=== PATIENT | female | born 1955 | race Caucasian/White ===

== ENCOUNTER 2017-06-14 14:11 | Inpatient (IN) | payer BC ==
[~2017-06-14] VITALS: Ht 172.7 cm; Wt 50.0 kg
[2017-06-14 14:13] VITALS: BP 140/98; PULSE 76; RESP 16; TEMP 98.5; O2SAT 96
[2017-06-14 14:58] LABS: AUTOMATED NEUTROPHIL # 5.3 TH/MM3 (1.8-7.7); BASOPHIL % 0.6 % (0.0-2.0); EOSINOPHIL % 0.5 % (0.0-4.0); HEMATOCRIT 40.5 % (35.0-46.0); HEMOGLOBIN 13.7 GM/DL (11.6-15.3); LYMPH % 19.2 % (9.0-44.0); LYMPHOCYTE # 1.5 TH/MM3 (1.0-4.8); MEAN CELL VOLUME 94.3 FL (80.0-100.0); MEAN CORPUSCULAR HEMOGLOBIN 31.9 PG (27.0-34.0); MEAN CORPUSCULAR HGB CONC 33.8 % (32.0-36.0); MEAN PLATELET VOLUME 8.2 FL (7.0-11.0); MONO % 9.4 % (0.0-8.0); MONOCYTE # 0.7 TH/MM3 (0-0.9); NEUT % 70.3 % (16.0-70.0); PLATELET COUNT 190 TH/MM3 (150-450); WHITE BLOOD COUNT 7.6 TH/MM3 (4.0-11.0)
[2017-06-14 15:06] LABS: BILIRUBIN, URINE NEG (NEG); BLOOD, URINE MOD (NEG); GLUCOSE,URINE NEG (NEG); HYALINE CAST, URINE 3 /lpf (RARE); KETONE, URINE NEG (NEG); NITRITE,URINE NEG (NEG); PH, URINE 5.5 (5.0-8.5); SQUAMOUS EPITHELIAL CELL URINE 2 /hpf (0-5); TRANSITIONAL EPI CELLS, URINE <1 /hpf; URINE COLOR YELLOW (YELLW/STRAW); URINE LEUKOCYTE ESTERASE NEG (NEG)
[2017-06-14 15:08] LABS: PROTHROMBIN TIME - PATIENT 11.4 SEC (9.8-11.6)
[2017-06-14 15:15] LABS: ALBUMIN 4.8 GM/DL (3.4-5.0); ALT (GPT) 23 U/L (10-53); AST (GOT) 31 U/L (15-37); BICARBONATE 27.5 MEQ/L (21.0-32.0); BLOOD UREA NITROGEN 16 MG/DL (7-18); CALCIUM 8.9 MG/DL (8.5-10.1); CHLORIDE 98 MEQ/L (98-107); CREATININE 0.86 MG/DL (0.50-1.00); GLOMERULAR FILTRATION RATE 67 ML/MIN (>89); GLUCOSE,RANDOM 100 MG/DL (74-106); SODIUM (NA) 136 MEQ/L (136-145)
[2017-06-14 15:26] LABS: ALKALINE PHOSPHATASE 62 U/L (45-117); TOTAL BILIRUBIN ADULT 0.5 MG/DL (0.2-1.0); TOTAL PROTEIN 8.1 GM/DL (6.4-8.2)
[2017-06-14] MEDS ORDERED: SOMA350T PO ×2 (15:54)
[2017-06-14] MEDS ORDERED: FIORINAL2 PO ×2 (15:54)
[2017-06-14] MEDS ORDERED: HYDR-3583 PO ×2 (15:54)
[2017-06-14] MEDS ORDERED: ESTR1 PO ×2 (15:54)
[2017-06-14] MEDS ORDERED: HALOPERIDOL LACTATE 5 MG/ML AMP IV PUSH ONE ×2 (16:45)
[2017-06-14] MEDS ORDERED: LORazepam 2 MG/ML VIAL IV PUSH ONE ×4 (16:45→17:30)
[2017-06-14] MEDS ORDERED: diphenhydrAMINE HCL 50 MG/ML VIAL IV PUSH ONE ×2 (16:45)
[2017-06-14 16:57] VITALS: BP 142/65; PULSE 77; RESP 18; TEMP 98.5; O2SAT 97
--- NOTE | 2017-06-14 17:25 | PD ---
HPI Chief Complaint: Altered Mental Status Time Seen by Provider: 16:15 Travel History International Travel<30 days: No Contact w/Intl Traveler<30days: No Traveled to known affect area: No History of Present Illness HPI This is a 62-year-old female who presents to the emergency department brought in by her who is concerned because she's been behaving bizarrely over the past 2-3 weeks. He says she's been delusional, expressing some auditory and visual hallucinations, talking to herself and waking up in the middle the night trying to clean the house and getting ready to go places. The symptoms have been constant and worsening per her , severe. She's been talking about Caleb Gandhi. She tells me that she is close family with Caleb Gandhi and that they were in the car earlier today. She quickly then told me she can discuss it anymore. She does have a history of chronic back and neck pain. She takes Soma and hydrocodone but has been taking these for years and she smokes marijuana recreationally but has also been doing this for years. She's not taking any new medications. She does endorse that she's been taking a lot of aspirin. PFSH Past Medical History Arthritis: Yes Migraines: Yes Past Surgical History Other Surgery: Yes (BREAST AUGMENTATION) Social History Alcohol Use: No Tobacco Use: No Substance Use: No Allergies-Medications (Allergen,Severity, Reaction): Coded Allergies: No Known Allergies (Unverified , 06/14/17) Reported Meds & Prescriptions Reported Meds & Active Scripts Active Reported Fiorinal (Butalbital/Aspirin/Caffeine) 50-325-40 Mg Cap 1 Cap PO Q4H PRN Do not exceed 6 capsules/day. Estrace (Estradiol) 1 Mg Tab 1 Mg PO DAILY Soma (Carisoprodol) 350 Mg Tab 350 Mg PO QID PRN Hydrocodone-Acetaminophen 10-325 mg Tab 1 Tab PO Q6H PRN Review of Systems Except as stated in HPI: all other systems reviewed are Neg Physical Exam Narrative GENERAL:Well appearing, no acute distress SKIN: Focused skin assessment warm and dry. HEAD: Atraumatic. Normocephalic. EYES: Pupils equal and round. No injection or drainage. ENT: Moist mucous membranes NECK: Trachea midline. CARDIOVASCULAR: Regular rate and rhythm. No murmur appreciated. RESPIRATORY: Clear to auscultation. Breath sounds equal bilaterally. GASTROINTESTINAL: Abdomen soft, non-tender, nondistended. MUSCULOSKELETAL: No obvious deformities. NEUROLOGICAL: Awake and alert. No obvious cranial nerve deficits. Moving all extremities PSYCHIATRIC: Delusional, somewhat tangential, grandiose, poor insight and judgment. Data Data Last Documented VS Vital Signs Date Time Temp Pulse Resp B/P (MAP) Pulse Ox O2 Delivery O2 Flow Rate FiO2 06/14/17 16:57 98.5 77 18 142/65 (90) 97 Room Air Orders Orders Ammonia (06/14/17 14:24) Complete Blood Count With Diff (06/14/17 14:24) Comprehensive Metabolic Panel (06/14/17 14:24) Prothrombin Time / Inr (Pt) (06/14/17 14:24) Act Partial Throm Time (Ptt) (06/14/17 14:24) Thyroid Stimulating Hormone (06/14/17 14:24) Urinalysis - C+S If Indicated (06/14/17 14:24) Drug Screen, Random Urine (06/14/17 14:24) Alcohol (Ethanol) (06/14/17 14:24) Salicylates (Aspirin) (06/14/17 16:28) Psych Screen (06/14/17 16:29) Lorazepam Inj (Ativan Inj) (06/14/17 16:45) Haloperidol Inj (Haldol Inj) (06/14/17 16:45) Diphenhydramine Inj (Benadryl Inj) (06/14/17 16:45) Labs Laboratory Tests Test 06/14/17 14:40 White Blood Count 7.6 TH/MM3 Red Blood Count 4.30 MIL/MM3 Hemoglobin 13.7 GM/DL Hematocrit 40.5 % Mean Corpuscular Volume 94.3 FL Mean Corpuscular Hemoglobin 31.9 PG Mean Corpuscular Hemoglobin Concent 33.8 % Red Cell Distribution Width 14.0 % Platelet Count 190 TH/MM3 Mean Platelet Volume 8.2 FL Neutrophils (%) (Auto) 70.3 % Lymphocytes (%) (Auto) 19.2 % Monocytes (%) (Auto) 9.4 % Eosinophils (%) (Auto) 0.5 % Basophils (%) (Auto) 0.6 % Neutrophils # (Auto) 5.3 TH/MM3 Lymphocytes # (Auto) 1.5 TH/MM3 Monocytes # (Auto) 0.7 TH/MM3 Eosinophils # (Auto) 0.0 TH/MM3 Basophils # (Auto) 0.0 TH/MM3 CBC Comment DIFF FINAL Differential Comment Prothrombin Time 11.4 SEC Prothromb Time International Ratio 1.0 RATIO Activated Partial Thromboplast Time 25.3 SEC Urine Color YELLOW Urine Turbidity HAZY Urine pH 5.5 Urine Specific [place] 1.018 Urine Protein TRACE mg/dL Urine Glucose (UA) NEG mg/dL Urine Ketones NEG mg/dL Urine Occult Blood MOD Urine Nitrite NEG Urine Bilirubin NEG Urine Urobilinogen LESS THAN 2.0 MG/DL Urine Leukocyte Esterase NEG Urine RBC 12 /hpf Urine WBC 1 /hpf Urine Squamous Epithelial Cells 2 /hpf Urine Transitional Epithelial Cells <1 /hpf Urine Hyaline Casts 3 /lpf Microscopic Urinalysis Comment CATH-CULT NOT IND Blood Urea Nitrogen 16 MG/DL Creatinine 0.86 MG/DL Random Glucose 100 MG/DL Total Protein 8.1 GM/DL Albumin 4.8 GM/DL Calcium Level 8.9 MG/DL Alkaline Phosphatase 62 U/L Aspartate Amino Transf (AST/SGOT) 31 U/L Alanine Aminotransferase (ALT/SGPT) 23 U/L Total Bilirubin 0.5 MG/DL Sodium Level 136 MEQ/L Potassium Level 3.3 MEQ/L Chloride Level 98 MEQ/L Carbon Dioxide Level 27.5 MEQ/L Anion Gap 11 MEQ/L Estimat Glomerular Filtration Rate 67 ML/MIN Ammonia 10 MCMOL/L Thyroid Stimulating Hormone 3rd Gen 4.250 uIU/ML Salicylates Level 10.8 MG/DL Urine Opiates Screen POS Urine Barbiturates Screen NEG Urine Amphetamines Screen NEG Urine Benzodiazepines Screen NEG Urine Cocaine Screen NEG Urine Cannabinoids Screen POS Ethyl Alcohol Level LESS THAN 3 MG/DL [facility] Medical Decision Making Medical Screen Exam Complete: Yes Emergency Medical Condition: Yes Interpretation(s) No leukocytosis Electrolytes are reassuring TSH is slightly elevated Urine drug screen is positive for opiates and cannabinoid Differential Diagnosis Substance intoxication, polypharmacy, delusional disorder, encephalitis, bipolar disorder Narrative Course This is a 62-year-old female who presents to the emergency department with delusions. She is actively delusional on my exam, saying that she was in the car with Caleb Gandhi earlier today and saying that she needs to get home because she is having guests. Her says she's been waking up in the middle the night and she's been trying to clean things up that aren't there and she's been acting very bizarrely and talking to herself. I think this patient requires acute psychiatric evaluation. Labs are all reassuring and she has a grossly normal neurologic exam. I don't think the patient demonstrates insight or judgment into her current condition. I'm concerned that she may cause harm to herself if she were discharged. I did place a Ferrell act and the patient was chemically sedated to await psychiatric evaluation. Francheska Smith MD Jun 14, 2017 17:25
[2017-06-14 18:42] VITALS: BP 126/62; PULSE 72; RESP 18; TEMP 98.2; O2SAT 98
[2017-06-14 21:16] VITALS: BP 135/63; PULSE 91; RESP 18; TEMP 96.4; O2SAT 98
--- NOTE | 2017-06-15 06:55 | PD ---
Data Data Last Documented VS Vital Signs Date Time Temp Pulse Resp B/P (MAP) Pulse Ox O2 Delivery O2 Flow Rate FiO2 06/14/17 21:16 96.4 91 18 135/63 (87) 98 Room Air Orders Orders Ammonia (06/14/17 14:24) Complete Blood Count With Diff (06/14/17 14:24) Comprehensive Metabolic Panel (06/14/17 14:24) Prothrombin Time / Inr (Pt) (06/14/17 14:24) Act Partial Throm Time (Ptt) (06/14/17 14:24) Thyroid Stimulating Hormone (06/14/17 14:24) Urinalysis - C+S If Indicated (06/14/17 14:24) Drug Screen, Random Urine (06/14/17 14:24) Alcohol (Ethanol) (06/14/17 14:24) Salicylates (Aspirin) (06/14/17 16:28) Psych Screen (06/14/17 16:29) Lorazepam Inj (Ativan Inj) (06/14/17 16:45) Haloperidol Inj (Haldol Inj) (06/14/17 16:45) Diphenhydramine Inj (Benadryl Inj) (06/14/17 16:45) Lorazepam Inj (Ativan Inj) (06/14/17 17:30) Diet Regular Basic (06/15/17 Breakfast) Labs Laboratory Tests Test 06/14/17 14:40 White Blood Count 7.6 TH/MM3 Red Blood Count 4.30 MIL/MM3 Hemoglobin 13.7 GM/DL Hematocrit 40.5 % Mean Corpuscular Volume 94.3 FL Mean Corpuscular Hemoglobin 31.9 PG Mean Corpuscular Hemoglobin Concent 33.8 % Red Cell Distribution Width 14.0 % Platelet Count 190 TH/MM3 Mean Platelet Volume 8.2 FL Neutrophils (%) (Auto) 70.3 % Lymphocytes (%) (Auto) 19.2 % Monocytes (%) (Auto) 9.4 % Eosinophils (%) (Auto) 0.5 % Basophils (%) (Auto) 0.6 % Neutrophils # (Auto) 5.3 TH/MM3 Lymphocytes # (Auto) 1.5 TH/MM3 Monocytes # (Auto) 0.7 TH/MM3 Eosinophils # (Auto) 0.0 TH/MM3 Basophils # (Auto) 0.0 TH/MM3 CBC Comment DIFF FINAL Differential Comment Prothrombin Time 11.4 SEC Prothromb Time International Ratio 1.0 RATIO Activated Partial Thromboplast Time 25.3 SEC Urine Color YELLOW Urine Turbidity HAZY Urine pH 5.5 Urine Specific [place] 1.018 Urine Protein TRACE mg/dL Urine Glucose (UA) NEG mg/dL Urine Ketones NEG mg/dL Urine Occult Blood MOD Urine Nitrite NEG Urine Bilirubin NEG Urine Urobilinogen LESS THAN 2.0 MG/DL Urine Leukocyte Esterase NEG Urine RBC 12 /hpf Urine WBC 1 /hpf Urine Squamous Epithelial Cells 2 /hpf Urine Transitional Epithelial Cells <1 /hpf Urine Hyaline Casts 3 /lpf Microscopic Urinalysis Comment CATH-CULT NOT IND Blood Urea Nitrogen 16 MG/DL Creatinine 0.86 MG/DL Random Glucose 100 MG/DL Total Protein 8.1 GM/DL Albumin 4.8 GM/DL Calcium Level 8.9 MG/DL Alkaline Phosphatase 62 U/L Aspartate Amino Transf (AST/SGOT) 31 U/L Alanine Aminotransferase (ALT/SGPT) 23 U/L Total Bilirubin 0.5 MG/DL Sodium Level 136 MEQ/L Potassium Level 3.3 MEQ/L Chloride Level 98 MEQ/L Carbon Dioxide Level 27.5 MEQ/L Anion Gap 11 MEQ/L Estimat Glomerular Filtration Rate 67 ML/MIN Ammonia 10 MCMOL/L Thyroid Stimulating Hormone 3rd Gen 4.250 uIU/ML Salicylates Level 10.8 MG/DL Urine Opiates Screen POS Urine Barbiturates Screen NEG Urine Amphetamines Screen NEG Urine Benzodiazepines Screen NEG Urine Cocaine Screen NEG Urine Cannabinoids Screen POS Ethyl Alcohol Level LESS THAN 3 MG/DL MDM Supervised Visit with CHIVO: No Narrative Course I was asked by the bioinformatics support specialist to order patient Fiorinal at the request of the psychiatrist. RN states that psychiatrist feels that the patient's symptoms are from Fiorinal withdrawal and not psychiatric illness after discussing the patient with the psychiatrist over the phone. I reviewed patient 's charts, [employer], and then discussed this with Dr. Taylor, who recommends having the RN verified with patient's exactly how often she was taken Fiorinal and when she actually took it last. Whether she was taking it 3 times a day regularly or just a when necessary medication. Per [employer] patient last picked up a prescription of Fiorinal March 23 of this year. This is was related to bioinformatics support specialist Ashleigh. Vivek Barrera Jun 15, 2017 06:55
--- NOTE | 2017-06-15 06:55 | PD ---
Data Data Last Documented VS Vital Signs Date Time Temp Pulse Resp B/P (MAP) Pulse Ox O2 Delivery O2 Flow Rate FiO2 06/14/17 21:16 96.4 91 18 135/63 (87) 98 Room Air Orders Orders Ammonia (06/14/17 14:24) Complete Blood Count With Diff (06/14/17 14:24) Comprehensive Metabolic Panel (06/14/17 14:24) Prothrombin Time / Inr (Pt) (06/14/17 14:24) Act Partial Throm Time (Ptt) (06/14/17 14:24) Thyroid Stimulating Hormone (06/14/17 14:24) Urinalysis - C+S If Indicated (06/14/17 14:24) Drug Screen, Random Urine (06/14/17 14:24) Alcohol (Ethanol) (06/14/17 14:24) Salicylates (Aspirin) (06/14/17 16:28) Psych Screen (06/14/17 16:29) Lorazepam Inj (Ativan Inj) (06/14/17 16:45) Haloperidol Inj (Haldol Inj) (06/14/17 16:45) Diphenhydramine Inj (Benadryl Inj) (06/14/17 16:45) Lorazepam Inj (Ativan Inj) (06/14/17 17:30) Diet Regular Basic (06/15/17 Breakfast) Labs Laboratory Tests Test 06/14/17 14:40 White Blood Count 7.6 TH/MM3 Red Blood Count 4.30 MIL/MM3 Hemoglobin 13.7 GM/DL Hematocrit 40.5 % Mean Corpuscular Volume 94.3 FL Mean Corpuscular Hemoglobin 31.9 PG Mean Corpuscular Hemoglobin Concent 33.8 % Red Cell Distribution Width 14.0 % Platelet Count 190 TH/MM3 Mean Platelet Volume 8.2 FL Neutrophils (%) (Auto) 70.3 % Lymphocytes (%) (Auto) 19.2 % Monocytes (%) (Auto) 9.4 % Eosinophils (%) (Auto) 0.5 % Basophils (%) (Auto) 0.6 % Neutrophils # (Auto) 5.3 TH/MM3 Lymphocytes # (Auto) 1.5 TH/MM3 Monocytes # (Auto) 0.7 TH/MM3 Eosinophils # (Auto) 0.0 TH/MM3 Basophils # (Auto) 0.0 TH/MM3 CBC Comment DIFF FINAL Differential Comment Prothrombin Time 11.4 SEC Prothromb Time International Ratio 1.0 RATIO Activated Partial Thromboplast Time 25.3 SEC Urine Color YELLOW Urine Turbidity HAZY Urine pH 5.5 Urine Specific [place] 1.018 Urine Protein TRACE mg/dL Urine Glucose (UA) NEG mg/dL Urine Ketones NEG mg/dL Urine Occult Blood MOD Urine Nitrite NEG Urine Bilirubin NEG Urine Urobilinogen LESS THAN 2.0 MG/DL Urine Leukocyte Esterase NEG Urine RBC 12 /hpf Urine WBC 1 /hpf Urine Squamous Epithelial Cells 2 /hpf Urine Transitional Epithelial Cells <1 /hpf Urine Hyaline Casts 3 /lpf Microscopic Urinalysis Comment CATH-CULT NOT IND Blood Urea Nitrogen 16 MG/DL Creatinine 0.86 MG/DL Random Glucose 100 MG/DL Total Protein 8.1 GM/DL Albumin 4.8 GM/DL Calcium Level 8.9 MG/DL Alkaline Phosphatase 62 U/L Aspartate Amino Transf (AST/SGOT) 31 U/L Alanine Aminotransferase (ALT/SGPT) 23 U/L Total Bilirubin 0.5 MG/DL Sodium Level 136 MEQ/L Potassium Level 3.3 MEQ/L Chloride Level 98 MEQ/L Carbon Dioxide Level 27.5 MEQ/L Anion Gap 11 MEQ/L Estimat Glomerular Filtration Rate 67 ML/MIN Ammonia 10 MCMOL/L Thyroid Stimulating Hormone 3rd Gen 4.250 uIU/ML Salicylates Level 10.8 MG/DL Urine Opiates Screen POS Urine Barbiturates Screen NEG Urine Amphetamines Screen NEG Urine Benzodiazepines Screen NEG Urine Cocaine Screen NEG Urine Cannabinoids Screen POS Ethyl Alcohol Level LESS THAN 3 MG/DL MDM Supervised Visit with CHIVO: No Narrative Course I was asked by the athlete marketing agent to order patient Fiorinal at the request of the psychiatrist. RN states that psychiatrist feels that the patient's symptoms are from Fiorinal withdrawal and not psychiatric illness after discussing the patient with the psychiatrist over the phone. I reviewed patient 's charts, [employer], and then discussed this with Dr. Taylor, who recommends having the RN verified with patient's exactly how often she was taken Fiorinal and when she actually took it last. Whether she was taking it 3 times a day regularly or just a when necessary medication. Per [employer] patient last picked up a prescription of Fiorinal March 23 of this year. This is was related to athlete marketing agent Ashleigh. Vivek Barrera Jun 15, 2017 06:55
--- NOTE | 2017-06-15 06:55 | PD ---
Data Data Last Documented VS Vital Signs Date Time Temp Pulse Resp B/P (MAP) Pulse Ox O2 Delivery O2 Flow Rate FiO2 06/14/17 21:16 96.4 91 18 135/63 (87) 98 Room Air Orders Orders Ammonia (06/14/17 14:24) Complete Blood Count With Diff (06/14/17 14:24) Comprehensive Metabolic Panel (06/14/17 14:24) Prothrombin Time / Inr (Pt) (06/14/17 14:24) Act Partial Throm Time (Ptt) (06/14/17 14:24) Thyroid Stimulating Hormone (06/14/17 14:24) Urinalysis - C+S If Indicated (06/14/17 14:24) Drug Screen, Random Urine (06/14/17 14:24) Alcohol (Ethanol) (06/14/17 14:24) Salicylates (Aspirin) (06/14/17 16:28) Psych Screen (06/14/17 16:29) Lorazepam Inj (Ativan Inj) (06/14/17 16:45) Haloperidol Inj (Haldol Inj) (06/14/17 16:45) Diphenhydramine Inj (Benadryl Inj) (06/14/17 16:45) Lorazepam Inj (Ativan Inj) (06/14/17 17:30) Diet Regular Basic (06/15/17 Breakfast) Labs Laboratory Tests Test 06/14/17 14:40 White Blood Count 7.6 TH/MM3 Red Blood Count 4.30 MIL/MM3 Hemoglobin 13.7 GM/DL Hematocrit 40.5 % Mean Corpuscular Volume 94.3 FL Mean Corpuscular Hemoglobin 31.9 PG Mean Corpuscular Hemoglobin Concent 33.8 % Red Cell Distribution Width 14.0 % Platelet Count 190 TH/MM3 Mean Platelet Volume 8.2 FL Neutrophils (%) (Auto) 70.3 % Lymphocytes (%) (Auto) 19.2 % Monocytes (%) (Auto) 9.4 % Eosinophils (%) (Auto) 0.5 % Basophils (%) (Auto) 0.6 % Neutrophils # (Auto) 5.3 TH/MM3 Lymphocytes # (Auto) 1.5 TH/MM3 Monocytes # (Auto) 0.7 TH/MM3 Eosinophils # (Auto) 0.0 TH/MM3 Basophils # (Auto) 0.0 TH/MM3 CBC Comment DIFF FINAL Differential Comment Prothrombin Time 11.4 SEC Prothromb Time International Ratio 1.0 RATIO Activated Partial Thromboplast Time 25.3 SEC Urine Color YELLOW Urine Turbidity HAZY Urine pH 5.5 Urine Specific [place] 1.018 Urine Protein TRACE mg/dL Urine Glucose (UA) NEG mg/dL Urine Ketones NEG mg/dL Urine Occult Blood MOD Urine Nitrite NEG Urine Bilirubin NEG Urine Urobilinogen LESS THAN 2.0 MG/DL Urine Leukocyte Esterase NEG Urine RBC 12 /hpf Urine WBC 1 /hpf Urine Squamous Epithelial Cells 2 /hpf Urine Transitional Epithelial Cells <1 /hpf Urine Hyaline Casts 3 /lpf Microscopic Urinalysis Comment CATH-CULT NOT IND Blood Urea Nitrogen 16 MG/DL Creatinine 0.86 MG/DL Random Glucose 100 MG/DL Total Protein 8.1 GM/DL Albumin 4.8 GM/DL Calcium Level 8.9 MG/DL Alkaline Phosphatase 62 U/L Aspartate Amino Transf (AST/SGOT) 31 U/L Alanine Aminotransferase (ALT/SGPT) 23 U/L Total Bilirubin 0.5 MG/DL Sodium Level 136 MEQ/L Potassium Level 3.3 MEQ/L Chloride Level 98 MEQ/L Carbon Dioxide Level 27.5 MEQ/L Anion Gap 11 MEQ/L Estimat Glomerular Filtration Rate 67 ML/MIN Ammonia 10 MCMOL/L Thyroid Stimulating Hormone 3rd Gen 4.250 uIU/ML Salicylates Level 10.8 MG/DL Urine Opiates Screen POS Urine Barbiturates Screen NEG Urine Amphetamines Screen NEG Urine Benzodiazepines Screen NEG Urine Cocaine Screen NEG Urine Cannabinoids Screen POS Ethyl Alcohol Level LESS THAN 3 MG/DL MDM Supervised Visit with CHIVO: No Narrative Course I was asked by the channel sales manager to order patient Fiorinal at the request of the psychiatrist. RN states that psychiatrist feels that the patient's symptoms are from Fiorinal withdrawal and not psychiatric illness after discussing the patient with the psychiatrist over the phone. I reviewed patient 's charts, [employer], and then discussed this with Dr. Taylor, who recommends having the RN verified with patient's exactly how often she was taken Fiorinal and when she actually took it last. Whether she was taking it 3 times a day regularly or just a when necessary medication. Per [employer] patient last picked up a prescription of Fiorinal March 23 of this year. This is was related to channel sales manager Ashleigh. Vivek Barrera Jun 15, 2017 06:55
[2017-06-15] MEDS ORDERED: LORazepam 1 MG TAB PO PRN ×2 (10:30)
[2017-06-15] MEDS ORDERED: MAGNESIUM HYDROXIDE SUSP 30 ML CUP PO PRN ×2 (10:30)
[2017-06-15] MEDS ORDERED: ACETAMINOPHEN 325 MG TAB PO PRN ×2 (10:30)
[2017-06-15] MEDS ORDERED: ALUMINUM/MAGNESIUM/SIMETH 30 ML CUP PO PRN ×2 (10:30)
[2017-06-15] MEDS ORDERED: LORazepam 2 MG TAB PO PRN ×2 (10:30)
[2017-06-15] MEDS ORDERED: FLUMAZENIL 0.5 MG/5 ML VIAL IV PUSH PRN ×2 (10:30)
[2017-06-15] MEDS ORDERED: LORazepam 2 MG/ML VIAL IV PUSH PRN ×8 (10:30)
--- NOTE | 2017-06-15 10:54 | HHI.HP ---
Provisional Diagnosis Admission Date Jun 15, 2017 at 10:29 [place]. Brief psychotic disorder Certification of Person's Competence To Provide Express and Informed Consent I have personally examined Theresa Sandoval , a person being served at [facility] on, Jun 15, 2017 10:42. Express and informed consent means consent voluntarily given in writing, by a competent person, after sufficient explanation and disclosure of the subject matter involved to enable the person to make a knowing and willful decision without any element of force, fraud, deceit, duress, or other form of constraint or coercion. This person is 18 years of age or older, is not now known to be incompetent to consent to treatment with a guardian advocate, and does not have a health care surrogate or proxy currently making medical treatment decisions. I have found this person to be one of the following: [X] Competent to provide express and informed consent, as defined above, for voluntary admission to this facility and is competent to provide express and informed consent for treatment. He/she has the consistent capacity to make well reasoned, willful, and knowing decisions concerning his or her medical or mental health treatment. The person fully and consistently understands the purpose of the admission for examination/placement and is fully capable of personally exercising all rights assured [place] [] Incompetent to provide express and informed consent to voluntary admission, and this is incompetent to provide express and informed consent to treatment. The person must be transferred to involuntary status and a petition for a guardian advocate filed with the Circuit Court. [] Refusing to provide express and informed consent to voluntary admission but is competent to provide express and informed consent for treatment. The person must be discharged or transferred to involuntary status. Form shall be completed within 24 hours of a person's arrival at the receiving facility and filed in the clinical record of each person: 1. Admitted on a voluntary basis 2. Permitted to provide express and informed consent to his/her own treatment 3. Allowed to transfer from involuntary to voluntary status 4. Prior to permitting a person to consent to his or her own treatment after having been previously found incompetent to consent to treatment. History of Present Illness Capacity: Has Capacity HPI 62-year-old female Ferrell acted for delusional and bizarre behavior. Patient was apparently talking about driving in a motor vehicle yesterday with Caleb De Souza. She has had several weeks of increasing delusional thinking and visual as well as auditory hallucinations. She admits to these experiences but is unable to provide much detail. She also talks about paresthesias in her hands and other bizarre physical symptoms. Her of many years became concerned and brought her to the hospital for further evaluation and treatment. The patient has been treated with opiates, Fiorinal, Soma for many years. Earlier, this year, her physician in [place] had a stroke and stop prescribing these medicines. She is still positive for barbiturates and opiates as well as cannabinoids in her toxicology screen. She admits to smoking marijuana frequently as well. There is some concern the patient is withdrawing from barbiturates. The patient wants to leave despite acknowledging that she is having hallucinations and delusions but her does not feel safe taking her home and prefers she be admitted for further evaluation and treatment. Review of Systems ROS Limitations: Clinical Condition Except as stated in HPI: all other systems reviewed are Neg Past Psych History Psychological trauma history Denied for psychological trauma. Violence risk - others (6 mos) Moderate to high due to psychosis and impulsivity. Violence risk - self (6 mos) High due to psychosis and impulsivity. Substance Abuse History Drugs/Alcohol past 12 months This physician notes the patient has a multitude of prescribed medicines that are written multiple times per day at relatively high doses. This physician is concerned that she is abusing these medicines and or mixing them inappropriately with marijuana. Past Family Social History Coded Allergies: No Known Allergies (Unverified , 06/14/17) Reported Medications Eqhyzifzlk-Dbxwjgc-Oofybslw (Fiorinal) 50-325-40 Mg Cap, 1 CAP PO Q4H Y for HEADACHE, CAP 0 Refills Do not exceed 6 capsules/day. 06/14/17 Estradiol (Estrace) 1 Mg Tab, 1 MG PO DAILY for Estrogen Supplements, #30 TAB 0 Refills 06/14/17 Carisoprodol (Soma) 350 Mg Tab, 350 MG PO QID Y for PAIN, TAB 0 Refills 06/14/17 Hydrocodone-Acetaminophen (Hydrocodone-Acetaminophen) 10-325 mg Tab, 1 TAB PO Q6H Y for PAIN, TAB 0 Refills 06/14/17 Current Medications Medications (Trade) Dose Ordered Sig/[place]son Route Start Time Stop Time Status Last Admin (Tylenol) 650 mg Q4H PRN PO 11/2/17 10:30 (Milk Of Magnesia Liq) 30 ml DAILY PRN PO 06/15/17 10:30 (Mag-Al Plus Susp Liq) 30 ml Q6H PRN PO 06/15/17 10:30 (Desyrel) 50 mg HS PRN PO 06/15/17 10:30 (Atarax) 50 mg Q6H PRN PO 06/15/17 10:30 (Romazicon Inj) 0.2 mg Q1M PRN IV PUSH 06/15/17 10:30 (Ativan) 1 mg Q4H PRN PO 06/15/17 10:30 UNV (Ativan Inj) 1 mg Q4H PRN IV PUSH 06/15/17 10:30 UNV (Ativan) 2 mg Q2H PRN PO 06/15/17 10:30 UNV (Ativan Inj) 2 mg Q2H PRN IV PUSH 06/15/17 10:30 UNV (Ativan Inj) 2 mg Q1H PRN IV PUSH 06/15/17 10:30 UNV (Ativan Inj) 2 mg Q15M PRN IV PUSH 06/15/17 10:30 UNV (Estradiol) 1 mg DAILY PO 06/15/17 10:45 ([place] 10-325 Mg) 1 tab Q6H PRN PO 06/15/17 11:00 Family Psych History Positive for mood and anxiety disorders. Social History Lives with her of many years. They apparently live in [place] but have traveled to [place] to obtain her prescriptions for many years. She is unemployed. She does have family support. She refers to herself as "Theresa the mouth". Patient's Strengths (min. 2) Verbal and has access to healthcare. Physical Exam GENERAL: SKIN: Warm and dry. HEAD: Normocephalic. EYES: No scleral icterus. No injection or drainage. NECK: Supple, trachea midline. No JVD or lymphadenopathy. CARDIOVASCULAR: Regular rate and rhythm without murmurs, gallops, or rubs. RESPIRATORY: Breath sounds equal bilaterally. No accessory muscle use. GASTROINTESTINAL: Abdomen soft, non-tender, nondistended. MUSCULOSKELETAL: No cyanosis, or edema. BACK: Nontender without obvious deformity. No CVA tenderness. Vital Signs Vital Signs Date Time Temp Pulse Resp B/P (MAP) Pulse Ox O2 Delivery O2 Flow Rate FiO2 06/14/17 21:16 96.4 91 18 135/63 (87) 98 Room Air Lab Results Test 06/14/17 14:40 White Blood Count 7.6 TH/MM3 Red Blood Count 4.30 MIL/MM3 Hemoglobin 13.7 GM/DL Hematocrit 40.5 % Mean Corpuscular Volume 94.3 FL Mean Corpuscular Hemoglobin 31.9 PG Mean Corpuscular Hemoglobin Concent 33.8 % Red Cell Distribution Width 14.0 % Platelet Count 190 TH/MM3 Mean Platelet Volume 8.2 FL Neutrophils (%) (Auto) 70.3 % Lymphocytes (%) (Auto) 19.2 % Monocytes (%) (Auto) 9.4 % Eosinophils (%) (Auto) 0.5 % Basophils (%) (Auto) 0.6 % Neutrophils # (Auto) 5.3 TH/MM3 Lymphocytes # (Auto) 1.5 TH/MM3 Monocytes # (Auto) 0.7 TH/MM3 Eosinophils # (Auto) 0.0 TH/MM3 Basophils # (Auto) 0.0 TH/MM3 CBC Comment DIFF FINAL Differential Comment Prothrombin Time 11.4 SEC Prothromb Time International Ratio 1.0 RATIO Activated Partial Thromboplast Time 25.3 SEC Urine Color YELLOW Urine Turbidity HAZY Urine pH 5.5 Urine Specific [place] 1.018 Urine Protein TRACE mg/dL Urine Glucose (UA) NEG mg/dL Urine Ketones NEG mg/dL Urine Occult Blood MOD Urine Nitrite NEG Urine Bilirubin NEG Urine Urobilinogen LESS THAN 2.0 MG/DL Urine Leukocyte Esterase NEG Urine RBC 12 /hpf Urine WBC 1 /hpf Urine Squamous Epithelial Cells 2 /hpf Urine Transitional Epithelial Cells <1 /hpf Urine Hyaline Casts 3 /lpf Microscopic Urinalysis Comment CATH-CULT NOT IND Blood Urea Nitrogen 16 MG/DL Creatinine 0.86 MG/DL Random Glucose 100 MG/DL Total Protein 8.1 GM/DL Albumin 4.8 GM/DL Calcium Level 8.9 MG/DL Alkaline Phosphatase 62 U/L Aspartate Amino Transf (AST/SGOT) 31 U/L Alanine Aminotransferase (ALT/SGPT) 23 U/L Total Bilirubin 0.5 MG/DL Sodium Level 136 MEQ/L Potassium Level 3.3 MEQ/L Chloride Level 98 MEQ/L Carbon Dioxide Level 27.5 MEQ/L Anion Gap 11 MEQ/L Estimat Glomerular Filtration Rate 67 ML/MIN Ammonia 10 MCMOL/L Thyroid Stimulating Hormone 3rd Gen 4.250 uIU/ML Salicylates Level 10.8 MG/DL Urine Opiates Screen POS Urine Barbiturates Screen NEG Urine Amphetamines Screen NEG Urine Benzodiazepines Screen NEG Urine Cocaine Screen NEG Urine Cannabinoids Screen POS Ethyl Alcohol Level LESS THAN 3 MG/DL Mental Status Examination Appearance: Appropriate Consciousness: Alert Orientation: x4 Motor Activity: Normal gait Speech: Rapid Language: Adequate Fund of Knowledge: Adequate Attention and Concentration: Easily Distracted Memory: Unremarkable Mood: Irritable Affect: Irritable Thought Process & Associations: Circumstantial, Tangential Thought Content: Bizarre thinking, Ideas of reference, Delusional Hallucination Type: None, Auditory, Visual Delusion Type: None Suicidal Ideation: No Suicidal Plan: No Suicidal Intention: No Homicidal Ideation: No Homicidal Plan: No Homicidal Intention: No Insight: Fair Judgment: Impulsive Assessment & Plan Problem List: (1) Brief psychotic disorder ICD Codes: F23 - Brief psychotic disorder Assessment & Plan Estimated LOS: days. 62-year-old female with a several week history of increasing delusional thinking and auditory as well as visual hallucinations. Patient has various neurological symptoms that she complains of that she does not wish to be hospitalized. This physician is concerned the patient may be going through withdrawal from barbiturates or drug intoxication from the marijuana she is using or having a bipolar mixed state reaction. In any event, she remains psychotic and her does not feel safe taking her home. She may be at risk for seizures as a result of barbiturate withdrawal. For these reasons she is being admitted for further evaluation and treatment. This physician has ordered a CBC and comprehensive metabolic panel to determine if any infectious process or metabolic process is causing or contributing to her psychosis. Additionally, we are obtaining thyroid stimulating hormone levels, vitamin B-12 levels and vitamin D levels to determine if deficiencies in these areas are causing or contributing to her psychosis. This physician on ordered a hospitalist consult due to the possibility of the patient having a withdrawal syndrome. Additionally, a WA a protocol was ordered. This physician ordered an EKG to determine the patient's cardiac conduction status prior to treatment with psychotropic medicines that may alter her cardiac conduction. This physician spoke with the nurse, Saeed, regarding the patient 's recent behavior. Case management will also be involved to assist with further information gathering and disposition planning. Justin Rolon MD Jun 15, 2017 10:54
[2017-06-15] MEDS: ESTRADIOL 1 MG TAB PO SCH ×2 (12:09)
[2017-06-15 13:09] VITALS: BP 135/63; PULSE 91; RESP 18; O2SAT 98
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
[2017-06-15] MEDS ORDERED: POTASSIUM CHLORIDE 20 MEQ CONTROLLED RELEASE TAB PO ONE ×2 (14:30)
--- NOTE | 2017-06-15 16:53 | RADRPT ---
EXAM DATE/TIME: 06/15/2017 16:36 [facility] COMPARISON: No previous studies available for comparison. INDICATIONS : Thyromegaly. MEDICAL HISTORY : Arthritis. Thyromegaly. SURGICAL HISTORY : Breast augmentation. ENCOUNTER: Initial ACUITY: 1 day PAIN SCORE: 0/10 LOCATION: Bilateral neck MEASUREMENTS: RIGHT LOBE: 4.4 x 1.7 x 1.0 cm cm LEFT LOBE: 3.6 x 1.6 x 2.5 cm FINDINGS: RIGHT LOBE: Homogeneous echotexture without nodules or cysts. Vascularity appears increased. LEFT LOBE: Homogeneous echotexture without nodules or cysts. Vascularity appears increased. ISTHMUS: Normal in size without focal abnormality. CONCLUSION: 1. The vascularity of both lobes appear to be increased. 2. Otherwise, the rest of the examination is unremarkable. No definite thyroid nodules are demonstrat ed. Addison Ramachandran MD on June 15, 2017 at 16:49 Board Certified Radiologist. This report was verified electronically.
[2017-06-15] MEDS: ACETAMIN 325 MG/BUTALBITAL 50 MG/CAFFEINE 40 MG TAB PO PRN ×2 (17:18)
[2017-06-15] MEDS: hydrOXYzine HCL 50 MG TAB PO PRN ×2 (20:39)
[2017-06-15] MEDS: CARISOPRODOL 350 MG TAB PO PRN ×2 (20:39)
[2017-06-15] MEDS: traZODone HCL 50 MG TAB PO PRN ×2 (20:39)
[2017-06-15 20:40] VITALS: BP 152/71; PULSE 59; RESP 16; TEMP 97.5; O2SAT 98
[2017-06-16 06:10] VITALS: BP 127/60; PULSE 63; RESP 17; TEMP 98.1; O2SAT 98
[2017-06-16 06:14] LABS: AUTOMATED NEUTROPHIL # 3.2 TH/MM3 (1.8-7.7); BASOPHIL % 0.8 % (0.0-2.0); EOSINOPHIL # 0.1 TH/MM3 (0-0.4); HEMOGLOBIN 12.7 GM/DL (11.6-15.3); LYMPH % 28.8 % (9.0-44.0); LYMPHOCYTE # 1.6 TH/MM3 (1.0-4.8); MEAN CELL VOLUME 94.4 FL (80.0-100.0); MEAN CORPUSCULAR HEMOGLOBIN 31.6 PG (27.0-34.0); MEAN CORPUSCULAR HGB CONC 33.5 % (32.0-36.0); MEAN PLATELET VOLUME 8.2 FL (7.0-11.0); MONO % 9.5 % (0.0-8.0); MONOCYTE # 0.5 TH/MM3 (0-0.9); NEUT % 58.9 % (16.0-70.0); PLATELET COUNT 124 TH/MM3 (150-450); RED BLOOD COUNT 4.03 MIL/MM3 (4.00-5.30); WHITE BLOOD COUNT 5.5 TH/MM3 (4.0-11.0)
[2017-06-16 07:03] LABS: ALBUMIN 3.5 GM/DL (3.4-5.0); ALKALINE PHOSPHATASE 51 U/L (45-117); ALT (GPT) 24 U/L (10-53); AST (GOT) 22 U/L (15-37); BICARBONATE 28.8 MEQ/L (21.0-32.0); BLOOD UREA NITROGEN 21 MG/DL (7-18); CALCIUM 8.3 MG/DL (8.5-10.1); CHLORIDE 100 MEQ/L (98-107); CHOLESTEROL 182 MG/DL (120-200); CHOLESTEROL/ HDL RATIO 2.37 RATIO; CREATININE 0.63 MG/DL (0.50-1.00); GLOMERULAR FILTRATION RATE 96 ML/MIN (>89); GLUCOSE,RANDOM 74 MG/DL (74-106); HDL CHOLESTEROL 76.7 MG/DL (40.0-60.0); LDL CHOLESTEROL 95 MG/DL (0-99); SODIUM (NA) 138 MEQ/L (136-145); TOTAL BILIRUBIN ADULT 0.5 MG/DL (0.2-1.0); TOTAL PROTEIN 6.2 GM/DL (6.4-8.2); TRIGLYCERIDES 50 MG/DL (42-150)
[2017-06-16] MEDS: ESTRADIOL 1 MG TAB PO SCH ×2 (09:17)
[2017-06-16] MEDS: ACETAMIN 325 MG/BUTALBITAL 50 MG/CAFFEINE 40 MG TAB PO PRN ×4 (09:17→16:03)
[2017-06-16] MEDS: CARISOPRODOL 350 MG TAB PO PRN ×6 (09:17→21:11)
--- NOTE | 2017-06-16 11:39 | HHI.PR ---
Subjective Remarks This is a pleasant 62 y/o Female who was admitted to Inpatient Psychiatric unit due to Acute Psychosis, brought in by her she has been behaving bizarrely over the past 2-3 weeks. patient has previous psychotic episode which includes delusional thinking and auditory and visual hallucinations. Psychiatrist was concerned that patient may be withdrawing from barbiturates or drug intoxication from marijuana or having a mixed bipolar state reaction. she has been taking mostly hydrocodone for her back pains and headaches. Patient stable in her bedroom seen in the presence at all times of female nurse Miss Alvarez, the patient wanted to get an MRI also she states she has her own physician including Neurology and had those tests in the past, I asked her to get the CT of the brain and will follow once ready, she also was discussed with Doctor Lonnie Ramirez I do not see Medical reason other than Psychiatric issues for her Psychosis. her laboratory and vital signs within normal limits except for Potassium level decreased asked for replacement. Objective Vital Signs Date Time Temp Pulse Resp B/P (MAP) Pulse Ox O2 Delivery O2 Flow Rate FiO2 06/16/17 06:10 98.1 63 17 127/60 (82) 98 06/15/17 20:40 97.5 59 16 152/71 (98) 98 06/15/17 13:09 91 18 135/63 (87) 98 Room Air I/O 06/15/17 06/15/17 06/15/17 06/16/17 06/16/17 06/16/17 07:00 15:00 23:00 07:00 15:00 23:00 Intake Total 240 ml 0 ml 120 ml Balance 240 ml 0 ml 120 ml Intake Oral 240 ml 0 ml 120 ml # Voids 2 2 Result Diagram: 06/16/17 0433 06/16/17 0433 Imaging Last Impressions Thyroid Ultrasound 06/15/17 0000 Signed Impressions: Service Date/Time: June 16:36 - CONCLUSION: 1. The vascularity of both lobes appear to be increased. 2. Otherwise, the rest of the examination is unremarkable. No definite thyroid nodules are demonstrated. Addison Ramachandran MD Procedures None Other Results Laboratory Tests Test 06/14/17 14:40 06/15/17 14:15 06/16/17 04:33 Prothrombin Time 11.4 SEC Prothromb Time International Ratio 1.0 RATIO Activated Partial Thromboplast Time 25.3 SEC Urine Color YELLOW Urine Turbidity HAZY Urine pH 5.5 Urine Specific [place] 1.018 Urine Protein TRACE mg/dL Urine Glucose (UA) NEG mg/dL Urine Ketones NEG mg/dL Urine Occult Blood MOD Urine Nitrite NEG Urine Bilirubin NEG Urine Urobilinogen LESS THAN 2.0 MG/DL Urine Leukocyte Esterase NEG Urine RBC 12 /hpf Urine WBC 1 /hpf Urine Squamous Epithelial Cells 2 /hpf Urine Transitional Epithelial Cells <1 /hpf Urine Hyaline Casts 3 /lpf Microscopic Urinalysis Comment CATH-CULT NOT IND Ammonia 10 MCMOL/L Salicylates Level 10.8 MG/DL Urine Opiates Screen POS Urine Barbiturates Screen NEG Urine Amphetamines Screen NEG Urine Benzodiazepines Screen NEG Urine Cocaine Screen NEG Urine Cannabinoids Screen POS Ethyl Alcohol Level LESS THAN 3 MG/DL Folate GREATER THAN 20.0 NG/ML Free Thyroxine 1.03 NG/DL Total Triiodothyronine 77 NG/DL White Blood Count 5.5 TH/MM3 Red Blood Count 4.03 MIL/MM3 Hemoglobin 12.7 GM/DL Hematocrit 38.0 % Mean Corpuscular Volume 94.4 FL Mean Corpuscular Hemoglobin 31.6 PG Mean Corpuscular Hemoglobin Concent 33.5 % Red Cell Distribution Width 14.0 % Platelet Count 124 TH/MM3 Mean Platelet Volume 8.2 FL Neutrophils (%) (Auto) 58.9 % Lymphocytes (%) (Auto) 28.8 % Monocytes (%) (Auto) 9.5 % Eosinophils (%) (Auto) 2.0 % Basophils (%) (Auto) 0.8 % Neutrophils # (Auto) 3.2 TH/MM3 Lymphocytes # (Auto) 1.6 TH/MM3 Monocytes # (Auto) 0.5 TH/MM3 Eosinophils # (Auto) 0.1 TH/MM3 Basophils # (Auto) 0.0 TH/MM3 CBC Comment DIFF FINAL Differential Comment Blood Urea Nitrogen 21 MG/DL Creatinine 0.63 MG/DL Random Glucose 74 MG/DL Total Protein 6.2 GM/DL Albumin 3.5 GM/DL Calcium Level 8.3 MG/DL Alkaline Phosphatase 51 U/L Aspartate Amino Transf (AST/SGOT) 22 U/L Alanine Aminotransferase (ALT/SGPT) 24 U/L Total Bilirubin 0.5 MG/DL Sodium Level 138 MEQ/L Potassium Level 3.2 MEQ/L Chloride Level 100 MEQ/L Carbon Dioxide Level 28.8 MEQ/L Anion Gap 9 MEQ/L Estimat Glomerular Filtration Rate 96 ML/MIN Triglycerides Level 50 MG/DL Cholesterol Level 182 MG/DL LDL Cholesterol 95 MG/DL HDL Cholesterol 76.7 MG/DL Cholesterol/HDL Ratio 2.37 RATIO Vitamin B12 Level 1035 PG/ML 25-Hydroxy Vitamin D Total 32.4 ng/ML Thyroid Stimulating Hormone 3rd Gen 2.620 uIU/ML Objective Remarks GENERAL: This is a thin lady, in no apparent distress. Pleasant. Appropriate mood. SKIN: No rashes, ecchymoses or lesions. Cool and dry. HEAD: Atraumatic. Normocephalic. No temporal or scalp tenderness. EYES: No scleral icterus. No injection or drainage. ENT: Nose without bleeding, purulent drainage or septal hematoma Airway patent. NECK: Trachea midline. No JVD. thyromegaly CARDIOVASCULAR: Regular rate and rhythm without murmurs, gallops, or rubs. RESPIRATORY: Clear to auscultation. Breath sounds equal bilaterally. No wheezes , rales, or rhonchi. GASTROINTESTINAL: Abdomen soft, non-tender, nondistended. No guarding. MUSCULOSKELETAL: Extremities without clubbing, cyanosis, or edema. No calf tenderness. NEUROLOGICAL: Awake and alert. Motor and sensory grossly within normal limits. Normal speech. Medications and IVs Current Medications Medications (Trade) Dose Ordered Sig/[place] Route Start Time Stop Time Status Last Admin (Tylenol) 650 mg Q4H PRN PO 06/15/17 10:30 06/15/17 12:09 (Milk Of Magnesia Liq) 30 ml DAILY PRN PO 06/15/17 10:30 (Mag-Al Plus Susp Liq) 30 ml Q6H PRN PO 06/15/17 10:30 (Desyrel) 50 mg HS PRN PO 06/15/17 10:30 06/15/17 20:39 (Atarax) 50 mg Q6H PRN PO 06/15/17 10:30 06/15/17 20:39 (Romazicon Inj) 0.2 mg Q1M PRN IV PUSH 06/15/17 10:30 (Ativan) 1 mg Q4H PRN PO 06/15/17 10:30 (Ativan Inj) 1 mg Q4H PRN IV PUSH 06/15/17 10:30 (Ativan) 2 mg Q2H PRN PO 06/15/17 10:30 (Ativan Inj) 2 mg Q2H PRN IV PUSH 06/15/17 10:30 (Ativan Inj) 2 mg Q1H PRN IV PUSH 06/15/17 10:30 (Ativan Inj) 2 mg Q15M PRN IV PUSH 06/15/17 10:30 (Estradiol) 1 mg DAILY PO 06/15/17 10:45 06/16/17 09:17 ([place] 10-325 Mg) 1 tab Q6H PRN PO 06/15/17 11:00 (Soma) 350 mg QID PRN PO 06/15/17 13:30 06/16/17 09:17 (Fioricet 325-50-40) 1 tab Q8H PRN PO 06/15/17 13:30 06/16/17 09:17 A/P Assessment and Plan Brief psychotic episodes: Management by psychiatry. Doubt that this is withdrawal effect from migraine medication since she has stopped all these medications several months/almost a year ago. - UA is negative. - Ammonia level is normal. TSH slightly elevated. Check free T4, total T3. - Obtain head CT to rule out medical etiologies. - B-12, folic acid levels are high -Drug screen positive for Marijuana -As discussed with Psychiatry specialist Doctor Lonnie Ramirez I do not see Organic pathology for her problems, she is abusing of Prescribed narcotics, Marijuana and Fioricet also has Soma she has the recommended dose of 350 mg three times a day and at bed time. asked for CT brain and follow. Weight loss/what sounds like dysphagia: Patient is not quite clear on describing. She reports some trouble with swallowing her saliva. For now, I would obtain ultrasound of the neck to rule out thyroid mass. Would also obtain TFT studies. Outpatient GI follow-up regarding EGD if needed. Her last colonoscopy was in 2002 with a GI doctor in [facility]. Hypokalemia: Ordered 80 meq or Potassium Chloride. Chronic back pains Chronic migraine headaches - Will resume Soma, hydrocodone, and Fioricet as needed at home dose. DVT prophylaxis with ambulation. Discussed Condition With patient, Nurse Kim As always a pleasure to talk about cases receive input and recommendations by Psychiatry specialist Doctor Lonnie Ramirez Appreciated. Discharge Planning As per Attending Physician Theodore Brewer MD Jun 16, 2017 11:39
--- NOTE | 2017-06-16 12:10 | EKG ---
Date Performed: 06/16/2017 Time Performed: 07:20:08 PTAGE: 62 years EKG: SINUS BRADYCARDIA BORDERLINE ECG NO PREVIOUS TRACING DOCTOR: Krzysztof Morales Interpretating Date/Time 06/16/2017 12:08:04
--- NOTE | 2017-06-16 12:10 | EKG ---
Date Performed: 06/16/2017 Time Performed: 07:20:08 PTAGE: 62 years EKG: SINUS BRADYCARDIA BORDERLINE ECG NO PREVIOUS TRACING DOCTOR: Krzysztof Morales Interpretating Date/Time 06/16/2017 12:08:04
--- NOTE | 2017-06-16 12:10 | EKG ---
Date Performed: 06/16/2017 Time Performed: 07:20:08 PTAGE: 62 years EKG: SINUS BRADYCARDIA BORDERLINE ECG NO PREVIOUS TRACING DOCTOR: Krzysztof Morales Interpretating Date/Time 06/16/2017 12:08:04
[2017-06-16] MEDS: hydrOXYzine HCL 50 MG TAB PO PRN ×4 (12:38→21:12)
[2017-06-16] MEDS ORDERED: POTASSIUM CHLORIDE 20 MEQ CONTROLLED RELEASE TAB PO ONE ×4 (12:45→17:00)
[2017-06-16 14:29] LABS: HEMOGLOBIN A1C 5.6 % (4.3-6.0)
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
[2017-06-16 18:15] VITALS: BP 122/59; PULSE 66; RESP 16; TEMP 97.3; O2SAT 99
--- NOTE | 2017-06-16 21:07 | RADRPT ---
EXAM DATE/TIME: 06/16/2017 20:49 [facility] COMPARISON: No previous studies available for comparison. INDICATIONS : Patient complains of headaches. RADIATION DOSE: 56.35 CTDIvol (mGy) MEDICAL HISTORY : hallucinations SURGICAL HISTORY : None. ENCOUNTER: Initial ACUITY: 1 day PAIN SCALE: 3/10 LOCATION: cranial TECHNIQUE: Multiple contiguous axial images were obtained of the head. Using automated exposure control and adj ustment of the mA and/or kV according to patient size, radiation dose was kept as low as reasonably a chievable to obtain optimal diagnostic quality images. DICOM format image data is available electro nically for review and comparison. FINDINGS: CEREBRUM: The ventricles are normal for age. No evidence of midline shift, mass lesion, hemorrhage or acute in farction. No extra-axial fluid collections are seen. POSTERIOR FOSSA: The cerebellum and brainstem are intact. The 4th ventricle is midline. The cerebellopontine angle i s unremarkable. EXTRACRANIAL: The visualized portion of the orbits is intact. SKULL: The calvaria is intact. No evidence of skull fracture. CONCLUSION: Normal examination. Harman James MD on June 16, 2017 at 21:04 Board Certified Radiologist. This report was verified electronically.
[2017-06-16] MEDS: ACETAMINOPHEN/HYDROcodone 325 MG/10 MG TAB PO PRN ×2 (21:11)
[2017-06-16] MEDS: traZODone HCL 50 MG TAB PO PRN ×2 (21:11)
[2017-06-17] MEDS: hydrOXYzine HCL 50 MG TAB PO PRN ×2 (03:17)
[2017-06-17] MEDS: ACETAMIN 325 MG/BUTALBITAL 50 MG/CAFFEINE 40 MG TAB PO PRN ×2 (03:18)
[2017-06-17] MEDS: ACETAMINOPHEN/HYDROcodone 325 MG/10 MG TAB PO PRN ×2 (03:18)
[2017-06-17 06:47] VITALS: BP 136/68; PULSE 73; RESP 18; TEMP 98.1; O2SAT 98
[2017-06-17] MEDS ORDERED: TRAZ50TA12 PO ×2 (07:50)
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
--- NOTE | 2017-06-17 08:02 | HHI.PR ---
Subjective Remarks This is a pleasant 62 y/o Female who was admitted to Inpatient Psychiatric unit due to Acute Psychosis, brought in by her she has been behaving bizarrely over the past 2-3 weeks. patient has previous psychotic episode which includes delusional thinking and auditory and visual hallucinations. Psychiatrist was concerned that patient may be withdrawing from barbiturates or drug intoxication from marijuana or having a mixed bipolar state reaction. she has been taking mostly hydrocodone for her back pains and headaches. Patient stable in her bedroom seen in the presence at all times of female nurse Miss Alvarez, the patient wanted to get an MRI also she states she has her own physician including Neurology and had those tests in the past, I asked her to get the CT of the brain and will follow once ready, she also was discussed with Doctor Lonnie Ramirez I do not see Medical reason other than Psychiatric issues for her Psychosis. her laboratory and vital signs within normal limits except for Potassium level decreased asked for replacement. 06/17: Seen in the presence of nurse Miss Conny the patient receive my recommendation about her home medicines, she wants her refills was recommended to try to decrease this consumption and titrate them down as soon as possible, she already was discharged home by her Primary psychiatry specialist Doctor James. No nausea vomit or diarrhea. Objective Vital Signs Date Time Temp Pulse Resp B/P (MAP) Pulse Ox O2 Delivery O2 Flow Rate FiO2 06/17/17 06:47 98.1 73 18 136/68 (90) 98 06/16/17 18:15 97.3 66 16 122/59 (80) 99 I/O 06/16/17 06/16/17 06/16/17 06/17/17 06/17/17 06/17/17 07:00 15:00 23:00 07:00 15:00 23:00 Intake Total 0 ml 480 ml 480 ml 240 ml Balance 0 ml 480 ml 480 ml 240 ml Intake Oral 0 ml 360 ml 480 ml 240 ml Tube Feeding 120 ml # Voids 2 2 1 # Bowel Movements 0 Result Diagram: 06/16/17 0433 06/16/17 0433 Imaging Last Impressions Thyroid Ultrasound 06/15/17 0000 Signed Impressions: Service Date/Time: June 16:36 - CONCLUSION: 1. The vascularity of both lobes appear to be increased. 2. Otherwise, the rest of the examination is unremarkable. No definite thyroid nodules are demonstrated. Addison Ramachandran MD Head CT 06/15/17 0000 Signed Impressions: Service Date/Time: Friday, June 16, 2017 20:49 - CONCLUSION: Normal examination. Harman James MD Procedures None Other Results Laboratory Tests Test 06/14/17 14:40 06/15/17 14:15 06/16/17 04:33 Prothrombin Time 11.4 SEC Prothromb Time International Ratio 1.0 RATIO Activated Partial Thromboplast Time 25.3 SEC Urine Color YELLOW Urine Turbidity HAZY Urine pH 5.5 Urine Specific [place] 1.018 Urine Protein TRACE mg/dL Urine Glucose (UA) NEG mg/dL Urine Ketones NEG mg/dL Urine Occult Blood MOD Urine Nitrite NEG Urine Bilirubin NEG Urine Urobilinogen LESS THAN 2.0 MG/DL Urine Leukocyte Esterase NEG Urine RBC 12 /hpf Urine WBC 1 /hpf Urine Squamous Epithelial Cells 2 /hpf Urine Transitional Epithelial Cells <1 /hpf Urine Hyaline Casts 3 /lpf Microscopic Urinalysis Comment CATH-CULT NOT IND Ammonia 10 MCMOL/L Salicylates Level 10.8 MG/DL Urine Opiates Screen POS Urine Barbiturates Screen NEG Urine Amphetamines Screen NEG Urine Benzodiazepines Screen NEG Urine Cocaine Screen NEG Urine Cannabinoids Screen POS Ethyl Alcohol Level LESS THAN 3 MG/DL Folate GREATER THAN 20.0 NG/ML Free Thyroxine 1.03 NG/DL Total Triiodothyronine 77 NG/DL White Blood Count 5.5 TH/MM3 Red Blood Count 4.03 MIL/MM3 Hemoglobin 12.7 GM/DL Hematocrit 38.0 % Mean Corpuscular Volume 94.4 FL Mean Corpuscular Hemoglobin 31.6 PG Mean Corpuscular Hemoglobin Concent 33.5 % Red Cell Distribution Width 14.0 % Platelet Count 124 TH/MM3 Mean Platelet Volume 8.2 FL Neutrophils (%) (Auto) 58.9 % Lymphocytes (%) (Auto) 28.8 % Monocytes (%) (Auto) 9.5 % Eosinophils (%) (Auto) 2.0 % Basophils (%) (Auto) 0.8 % Neutrophils # (Auto) 3.2 TH/MM3 Lymphocytes # (Auto) 1.6 TH/MM3 Monocytes # (Auto) 0.5 TH/MM3 Eosinophils # (Auto) 0.1 TH/MM3 Basophils # (Auto) 0.0 TH/MM3 CBC Comment DIFF FINAL Differential Comment Blood Urea Nitrogen 21 MG/DL Creatinine 0.63 MG/DL Random Glucose 74 MG/DL Total Protein 6.2 GM/DL Albumin 3.5 GM/DL Calcium Level 8.3 MG/DL Alkaline Phosphatase 51 U/L Aspartate Amino Transf (AST/SGOT) 22 U/L Alanine Aminotransferase (ALT/SGPT) 24 U/L Total Bilirubin 0.5 MG/DL Sodium Level 138 MEQ/L Potassium Level 3.2 MEQ/L Chloride Level 100 MEQ/L Carbon Dioxide Level 28.8 MEQ/L Anion Gap 9 MEQ/L Estimat Glomerular Filtration Rate 96 ML/MIN Hemoglobin A1c 5.6 % Triglycerides Level 50 MG/DL Cholesterol Level 182 MG/DL LDL Cholesterol 95 MG/DL HDL Cholesterol 76.7 MG/DL Cholesterol/HDL Ratio 2.37 RATIO Vitamin B12 Level 1035 PG/ML 25-Hydroxy Vitamin D Total 32.4 ng/ML Thyroid Stimulating Hormone 3rd Gen 2.620 uIU/ML Objective Remarks GENERAL: This is a thin lady, in no apparent distress. Pleasant. Appropriate mood. SKIN: No rashes, ecchymoses or lesions. Cool and dry. HEAD: Atraumatic. Normocephalic. No temporal or scalp tenderness. EYES: No scleral icterus. No injection or drainage. ENT: Nose without bleeding, purulent drainage or septal hematoma Airway patent. NECK: Trachea midline. No JVD. thyromegaly CARDIOVASCULAR: Regular rate and rhythm without murmurs, gallops, or rubs. RESPIRATORY: Clear to auscultation. Breath sounds equal bilaterally. No wheezes , rales, or rhonchi. GASTROINTESTINAL: Abdomen soft, non-tender, nondistended. No guarding. MUSCULOSKELETAL: Extremities without clubbing, cyanosis, or edema. No calf tenderness. NEUROLOGICAL: Awake and alert. Motor and sensory grossly within normal limits. Normal speech. Medications and IVs Current Medications Medications (Trade) Dose Ordered Sig/[place]son Route Start Time Stop Time Status Last Admin (Tylenol) 650 mg Q4H PRN PO 06/15/17 10:30 06/15/17 12:09 (Milk Of Magnesia Liq) 30 ml DAILY PRN PO 06/15/17 10:30 (Mag-Al Plus Susp Liq) 30 ml Q6H PRN PO 06/15/17 10:30 (Desyrel) 50 mg HS PRN PO 06/15/17 10:30 06/16/17 21:11 (Atarax) 50 mg Q6H PRN PO 06/15/17 10:30 06/17/17 03:17 (Romazicon Inj) 0.2 mg Q1M PRN IV PUSH 06/15/17 10:30 (Ativan) 1 mg Q4H PRN PO 06/15/17 10:30 (Ativan Inj) 1 mg Q4H PRN IV PUSH 06/15/17 10:30 (Ativan) 2 mg Q2H PRN PO 06/15/17 10:30 (Ativan Inj) 2 mg Q2H PRN IV PUSH 06/15/17 10:30 (Ativan Inj) 2 mg Q1H PRN IV PUSH 06/15/17 10:30 (Ativan Inj) 2 mg Q15M PRN IV PUSH 06/15/17 10:30 (Estradiol) 1 mg DAILY PO 06/15/17 10:45 06/16/17 09:17 ([place] 10-325 Mg) 1 tab Q6H PRN PO 06/15/17 11:00 06/17/17 03:18 (Soma) 350 mg QID PRN PO 06/15/17 13:30 06/16/17 21:11 (Fioricet 325-50-40) 1 tab Q8H PRN PO 06/15/17 13:30 06/17/17 03:18 A/P Assessment and Plan Brief psychotic episodes: Management by psychiatry. Doubt that this is withdrawal effect from migraine medication since she has stopped all these medications several months/almost a year ago. - UA is negative. - Ammonia level is normal. TSH slightly elevated. Check free T4, total T3. - Obtain head CT to rule out medical etiologies. - B-12, folic acid levels are high -Drug screen positive for Marijuana -As discussed with Psychiatry specialist Doctor Lonnie Ramirez I do not see Organic pathology for her problems, she is abusing of Prescribed narcotics, Marijuana and Fioricet also has Soma she has the recommended dose of 350 mg three times a day and at bed time. asked for CT brain no acute issues found. Weight loss/what sounds like dysphagia: Patient is not quite clear on describing. She reports some trouble with swallowing her saliva. For now, I would obtain ultrasound of the neck to rule out thyroid mass. Would also obtain TFT studies. Outpatient GI follow-up regarding EGD if needed. Her last colonoscopy was in 2002 with a GI doctor in [facility]. Hypokalemia: Ordered 80 meq or Potassium Chloride. The patient REFUSED. Chronic back pains Chronic migraine headaches - Will resume Soma, hydrocodone, and Fioricet as needed at home dose. refills performed. DVT prophylaxis with ambulation. Discussed Condition With patient, Nurse Miss Ford Discharge Planning As per Attending Physician Theodore Brewer MD Jun 17, 2017 08:02
[2017-06-17] MEDS ORDERED: FIORINAL2 PO ×2 (08:06)
[2017-06-17] MEDS ORDERED: SOMA350T PO ×2 (08:06)
[2017-06-17] MEDS ORDERED: HYDR-3583 PO ×2 (08:06)
[2017-06-17] MEDS: ESTRADIOL 1 MG TAB PO SCH ×2 (08:13)
== END 2017-06-17 11:40 | disposition home or self-care (01) | DRG 885 ==
LOC: NEPD 14:11 → NEDA 06-15 10:29 → H4EA 06-15 12:30
PROVIDERS: ADMIT Student in an Organized Health Care Education/Training Program; ATTEND Student in an Organized Health Care Education/Training Program
DX: F23 Brief psychotic disorder (principal); F11.20 Opioid dependence, uncomplicated; Z68.1 Body mass index [BMI] 19.9 or less, adult; E87.6 Hypokalemia; G43.909 Migraine, unspecified, not intractable, without status migrainosus; R63.4 Abnormal weight loss; G89.29 Other chronic pain; M54.9 Dorsalgia, unspecified; F12.90 Cannabis use, unspecified, uncomplicated
CPT/HCPCS: 70450; 76536; 80053; 80061; 80307; 81001; 82140; 82306; 82607; 82746; 83036; 84439; 84443; 84480; 85025; 85610; 85730; 93005; 96374; 96375; 96376; J1200; J1630; J2060